=== PATIENT | female | born 1935 | race Caucasian/White ===

== ENCOUNTER → 2016-04-15 | Outpatient (CLI) | payer OTHER ==
--- NOTE | 2016-04-15 09:23 | REPMRS ---
Patient History The patient states she has not had a clinical breast exam in over a year. Patient is postmenopausal and has history of cancer at 56 in the left breast. Family history of colorectal cancer in maternal grandfather at age 50 or over and breast cancer in maternal aunt at age 50 or over. Malignant lumpectomy of the left breast. Radiation therapy of the left breast. Digital Mammo Screening Bilat: April 15, 2016 - Exam #: [id number] Bilateral CC and MLO view(s) were taken. Technologist: Cecelia Jarrell Technologist Prior study comparison: April 10, 2015, bilateral digital mammo screening bilat performed at [facility]. April 03, 2014, bilateral digital mammo screening bilat performed at [facility]. April 02, 2013, bilateral digital mammo screening bilat performed at [facility]. FINDINGS: The breast tissue is heterogeneously dense. This may lower the sensitivity of mammography. There is a moderate amount of heterogeneously dense fibroglandular tissue which is fairly symmetric. There are stable post treatment changes in the left breast. There is no interval development of dominant mass, architectural distortion, or clustered microcalcification typical of malignancy. There has been no change in the appearance of the mammogram from the prior studies. ASSESSMENT: BI-RADS/ACR category 1 mammogram. Negative. Recommendation Routine screening mammogram of both breasts in 1 year (for women over age 40). This mammogram was interpreted with the aid of an FDA-approved computer-aided dectection system. Electronically Signed By: Godwin Wright MD 04/15/16 0916
== END ==
LOC: M RAD 08:19
PROVIDERS: ATTEND Family Medicine
DX: Z12.31 Encounter for screening mammogram for malignant neoplasm of breast (principal)

== ENCOUNTER 2016-09-12 19:46 | Emergency (ER) | payer OTHER ==
[~2016-09-12] VITALS: Ht 147.3 cm; Wt 58.6 kg
[2016-09-12] MEDS ORDERED: MODU5TA PO (20:19)
[2016-09-12] MEDS ORDERED: METH2.5TA PO (20:19)
[2016-09-12] MEDS ORDERED: ATEN50TA2 PO (20:19)
[2016-09-12] MEDS ORDERED: PRAV40TA2 PO (20:19)
[2016-09-12 21:55] LABS: ALBUMIN 3.6 GM/DL (3.2-5.2); ALBUMIN/GLOBULIN RATIO 1.24 (1.00-1.93); BILIRUBIN,DIRECT 0.2 MG/DL (0.0-0.2); BILIRUBIN,TOTAL 0.5 MG/DL (0.2-1.0); CREATININE FOR GFR 1.51 MG/DL (0.55-1.02); POTASSIUM SERUM 3.7 MEQ/L (3.5-5.1); THYROXINE (T4) 16.8 UG/DL (4.5-12.0); TOTAL PROTEIN 6.5 GM/DL (6.4-8.2)
[2016-09-12 22:25] LABS: ADD MANUAL DIFFER YES; MEAN CORPUSCULAR HEMOGLOBIN 33.1 pg (27.0-33.0); MEAN CORPUSCULAR HGB CONC 34.2 g/dl (32.0-36.5); MEAN CORPUSCULAR VOLUME 96.9 fl (80.0-96.0); PLATELET COUNT, AUTOMATED 229 k/mm3 (150-450); RED CELL DISTRIBUTION WIDTH 14.5 % (11.5-14.5); WHITE BLOOD COUNT 19.4 K/mm3 (4.0-10.0)
[2016-09-12 22:50] LABS: BANDS 4 % (< 11)
[2016-09-12] MEDS ORDERED: CIPROFLOXACIN 400 MG in APPROPRIATE DILUENT 1 EA IV ONE (23:30)
[2016-09-12] MEDS ORDERED: NS 500 ML IV ONE (23:30)
[2016-09-12] MEDS ORDERED: CIPR-249 PO (23:53)
[2016-09-13 00:05] VITALS: BP 122/59
== END 2016-09-13 00:56 | disposition home or self-care (01) ==
LOC: EDBD 19:46 → M ED 19:46 → EDSEX 19:46 → M ED 09-13 00:56
DX: N39.0 Urinary tract infection, site not specified (principal); E86.0 Dehydration; E03.9 Hypothyroidism, unspecified; E11.9 Type 2 diabetes mellitus without complications; I10 Essential (primary) hypertension; E78.4 Other hyperlipidemia; Z87.891 Personal history of nicotine dependence
CPT/HCPCS: 80048; 80076; 81001; 84436; 84443; 84479; 85025; 87088; 87186; 96361; 96365; 96366; 99284; J0744

== ENCOUNTER → 2017-04-26 | Outpatient (CLI) | payer OTHER | LOC: M RAD 08:28 | DX: Z12.31 Encounter for screening mammogram for malignant neoplasm of breast (principal) | CPT/HCPCS: 77067 ==

== ENCOUNTER → 2018-04-30 | Outpatient (CLI) | payer MEDICARE ==
[~2018-04-30] MED LIST: ATEN50TA2 PO; CIPR-249 PO; METH2.5T48 PO; MODU5TA PO; PRAV40TA2 PO
--- NOTE | 2018-04-30 10:52 | REP ---
BILATERAL MAMMOGRAM WITH 3D TOMOSYNTHESIS: HISTORY: Left breast cancer with lumpectomy and radiation therapy. COMPARISON: 04/26/2017 as well as multiple other prior exams. Moderate heterogenous fibroglandular tissue is seen bilaterally. Postsurgical architectural distortion in the left breast is stable with a large amount of dystrophic calcification focally in the medial left breast. I see no new mass however there do appear to be tiny calcifications in the inferomedial right breast for which magnification views are recommended. IMPRESSION: ACR 0 incomplete. Tiny calcifications seen posteriorly in the inferomedial right breast. Recommend magnification views to further evaluate. BIRADS 0: BI-RADS/ACR category 0 mammogram, Incomplete: Need additional imaging evaluation and/or prior mammograms for comparison. This mammogram was interpreted with the aid of an FDA-approved computer-aided detection system. The patient states she has not had a clinical breast exam in over a year. The patient letter being requested is M0. Electronically Signed by Rivera Payne MD 05/02/2018 10:23 A
== END ==
LOC: M RAD 09:20
PROVIDERS: ATTEND Family Medicine
DX: Z12.31 Encounter for screening mammogram for malignant neoplasm of breast (principal); R92.1 Mammographic calcification found on diagnostic imaging of breast; Z85.3 Personal history of malignant neoplasm of breast; R92.8 Other abnormal and inconclusive findings on diagnostic imaging of breast

== ENCOUNTER → 2018-05-28 | Outpatient (CLI) | payer MEDICARE ==
--- NOTE | 2018-05-28 13:15 | REP ---
DIGITAL DIAGNOSTIC UNILATERAL RIGHT BREAST MAMMOGRAPHY WITH CAD: HISTORY: Screening mammography from April 30, 2018 was BIRADS category 0 incomplete because of some microcalcifications. Diagnostic imaging was recommended. Comparison is also made with prior mammography from April 2016. FINDINGS: Magnified focal spot compression CC, true ML, and MLO views of the right breast confirm the presence of a polymorphic tight grouping of six or seven microcalcifications in the inferomedial quadrant of the right breast in the posterior third. These must be viewed as potentially suspicious. No other mammographic finding. IMPRESSION: BIRADS 4: BI-RADS/ACR category 4 mammogram. Suspicious Abnormality - biopsy should be considered. BIRADS category four suspicious right breast imaging. Microcalcifications noted inferiorly and medially in the right breast. Stereotactic right breast needle biopsy recommended. This mammogram was interpreted with the aid of an FDA-approved computer-aided detection system. The patient states that she/he has not had a clinical breast exam in over a year. The patient letter being requested is M4 . Electronically Signed by Linus Wright MD 05/28/2018 04:44 P
== END ==
LOC: M RAD 11:32
PROVIDERS: ATTEND Family Medicine
DX: R92.8 Other abnormal and inconclusive findings on diagnostic imaging of breast (principal)

== ENCOUNTER → 2018-11-27 | Outpatient (CLI) | payer MEDICARE ==
--- NOTE | 2018-11-27 15:24 | REP ---
Digital diagnostic unilateral right breast mammography with CAD and 3-D tomography: History: Microcalcifications found on diagnostic imaging of the right breast. Personal history of malignant neoplasm of the breast. Comparison mammography is from May 28, 2018, April 30, 2018, April 26, 2017. A small microcalcific grouping was identified on the April 2018 prior study. On May 28, 2018 these were evaluated on diagnostic mammography and were considered suspicious with histologic sampling recommended. Findings: Routine views of the right breast were obtained. Magnified focal spot compression images were obtained in the CC, true ML, and MLO projection. 3-D tomography was performed. The previously identified microcalcific grouping is again seen projecting in the inferior and medial aspect of the right breast. These are unchanged in size and morphology. There are seven polymorphic microcalcifications in a tight grouping spanning approximately 3 mm. No soft tissue component is appreciated. Heterogeneously dense breast parenchyma is again seen in the subareolar and upper outer quadrant regions. There are scattered benign calcifications noted on the right as before. No neodensity or new microcalcification is observed. Impression: BIRADS 4: BI-RADS/ACR category 4 mammogram. Suspicious Abnormality - biopsy should be considered. Polymorphic microcalcific cluster inferomedial quadrant right breast meeting criteria as suspicious BIRADS category 4 mammography. Stereotactic needle biopsy recommended. There has been no change observable in the interval since the May 28, 2018 study. This mammogram was interpreted with the aid of an FDA-approved computer-aided detection system. The patient states she had a clinical breast exam in 6 months ago. The patient letter being requested is M4 dense. Electronically Signed by Linus Wright MD 11/27/2018 06:49 P
== END ==
LOC: M RAD 08:16
PROVIDERS: ATTEND Surgery
DX: R92.0 Mammographic microcalcification found on diagnostic imaging of breast (principal); Z85.3 Personal history of malignant neoplasm of breast
CPT/HCPCS: 77065; G0279

== ENCOUNTER → 2019-07-10 | Outpatient (CLI) | payer MEDICARE ==
[~2019-07-10] MED LIST changes: +CARB10TACH; +FURO40TA2; +SPIR50TA4
[2019-07-10 14:32] LABS: ALBUMIN 3.6 GM/DL (3.2-5.2); ALT/SGPT 30 U/L (12-78); BILIRUBIN,TOTAL 0.4 MG/DL (0.2-1.0); BLOOD UREA NITROGEN 22 MG/DL (7-18); C REACTIVE PROTEIN QUANTITATIV < 0.30 MG/DL (0.00-0.30); CALCIUM LEVEL 9.1 MG/DL (8.8-10.2); CARBON DIOXIDE LEVEL 29 MEQ/L (21-32); CHLORIDE LEVEL 99 MEQ/L (98-107); CK-MB VALUE MASS < 1.0 NG/ML (<3.6); CPK CREATINE PHOSPHOKINASE 56 U/L (26-192); CREATININE FOR GFR 0.99 MG/DL (0.55-1.30); GLOMERULAR FILTRATION RATE 56.6 (>32); GLUCOSE, FASTING 108 MG/DL (70-100); MB/CK RELATIVE INDEX 1.79 (< OR =4); NT-PRO BNP 1044 PG/ML (<450); POTASSIUM SERUM 4.2 MEQ/L (3.5-5.1); SODIUM LEVEL 136 MEQ/L (136-145); TOTAL PROTEIN 6.5 GM/DL (6.4-8.2); TROPONIN I 0.16 NG/ML (< 0.10)
--- NOTE | 2019-07-11 03:03 | REPPI ---
Clinical: Edema. Technique: PA and lateral. Comparison: 08/11/2006. Findings: Mediastinum and cardiac silhouette are stable with atherosclerotic changes to the thoracic aorta again noted. Lung allen demonstrate chronic-appearing interstitial changes including suspected linear scarring at the right base. No obvious focal consolidation, effusion, or pneumothorax. Skeletal structures are intact. Impression: Chronic-appearing changes. No obvious acute cardiopulmonary process appreciated. Electronically Signed by Fco Davila MD 07/11/2019 02:54 A
== END ==
LOC: M PLAIMG 11:41
PROVIDERS: ATTEND Family Medicine
DX: R60.0 Localized edema (principal); R07.89 Other chest pain

== ENCOUNTER 2019-07-11 15:09 | Emergency (ER) | payer MEDICARE ==
[~2019-07-11] VITALS: Ht 147.3 cm; Wt 61.4 kg
[~2019-07-11 15:09] MED LIST changes: -CARB10TACH; -FURO40TA2; -SPIR50TA4
[2019-07-11] MEDS ORDERED: SPIR50TA4 (15:21)
[2019-07-11] MEDS ORDERED: FURO40TA2 (15:21)
--- NOTE | 2019-07-11 17:45 | REP ---
CHEST, SINGLE VIEW: Single view of the chest is performed. There is mild elevation of the left hemidiaphragm, unchanged since prior study 07/10/2019. There is mild linear fibroatelectatic change in each lung base. There is no acute infiltrate. Heart is upper limits of normal in size. There is calcification tortuosity of the thoracic aorta. Mediastinal silhouette is unchanged. IMPRESSION: Mild chronic changes. No acute infiltrate. Electronically Signed by Rivera Payne MD 07/12/2019 10:10 A
[2019-07-11 17:47] LABS: INR 1.01
[2019-07-11 17:57] LABS: CALCIUM LEVEL 9.2 MG/DL (8.8-10.2); CREATININE FOR GFR 1.01 MG/DL (0.55-1.30); GLOMERULAR FILTRATION RATE 55.3 (>32); MB/CK RELATIVE INDEX 1.54 (< OR =4); POTASSIUM SERUM 4.3 MEQ/L (3.5-5.1); TROPONIN I 0.13 NG/ML (< 0.10)
[2019-07-11 18:08] LABS: BASO % 0.4 % (0.0-1.0); EOS # 0.2 10^3/uL (0.0-0.5); EOS % 2.6 % (0.0-3.0); HEMATOCRIT 39.9 % (36.0-47.0); HEMOGLOBIN 13.7 g/dl (12.0-15.5); LYMPH # 1.3 10^3/uL (1.5-5.0); LYMPH % 15.5 % (24.0-44.0); MEAN CORPUSCULAR HEMOGLOBIN 34.3 pg (27.0-33.0); MEAN CORPUSCULAR HGB CONC 34.3 g/dl (32.0-36.5); MONO # 0.5 10^3/uL (0.0-0.8); MONO % 5.8 % (0.0-5.0); NEUTROPHILS # 6.1 10^3/uL (1.5-8.5); NEUTROPHILS % 75.3 % (36.0-66.0); PLATELET COUNT, AUTOMATED 241 10^3/uL (150-450); RED BLOOD COUNT 3.99 10^6/uL (4.00-5.40); WHITE BLOOD COUNT 8.1 10^3/uL (4.0-10.0)
[2019-07-11] MEDS ORDERED: CARB10TACH (19:18)
[2019-07-11 19:30] VITALS: BP 189/79
[2019-07-11] MEDS: FUROSEMIDE 40MG/4ML VIAL (J1940) IV ONE ×2 (19:32→19:39)
--- NOTE | 2019-07-11 21:12 | ECGEPIP ---
[facility] - ED Test Date: 2019-07-11 Pat Name: SIENA WINSOLW Department: Room: - Gender: Female [id number] Administrator: ct : 1935 Requested By: NATANAEL Chen Order Number: [id number] Reading MD: Alexx Cavanaugh Measurements Intervals [place] Rate: 56 P: -50 [place]: 160 QRS: 1 QRSD: 84 T: 22 QT: 389 QTc: 379 Interpretive Statements SINUS BRADYCARDIA LEFT VENTRICULAR HYPERTROPHY AND ST-T CHANGE NO PRIORS FOR COMPARISON Electronically Signed on 07-11-2019 21:12:28 EDT by Alexx Cavanaugh
== END 2019-07-11 20:00 | disposition home or self-care (01) ==
LOC: M ED 15:09
DX: I11.0 Hypertensive heart disease with heart failure (principal); R79.89 Other specified abnormal findings of blood chemistry; R06.02 Shortness of breath; E11.9 Type 2 diabetes mellitus without complications; E78.5 Hyperlipidemia, unspecified; G50.0 Trigeminal neuralgia; Z79.899 Other long term (current) drug therapy; Z79.82 Long term (current) use of aspirin; Z88.0 Allergy status to penicillin; Z88.1 Allergy status to other antibiotic agents; Z88.8 Allergy status to other drugs, medicaments and biological substances
CPT/HCPCS: 36415; 71045; 80048; 82550; 82553; 83880; 84484; 85025; 85610; 93005; 93041; 94760; 96374; 99285; J1940

== ENCOUNTER → 2019-07-11 | Outpatient (CLI) | payer MEDICARE ==
[2019-07-11 18:49] LABS: CK-MB VALUE MASS < 1.0 NG/ML (<3.6); CPK CREATINE PHOSPHOKINASE 61 U/L (26-192); MB/CK RELATIVE INDEX 1.64 (< OR =4); TROPONIN I 0.13 NG/ML (< 0.10)
== END ==
LOC: M PLALAB 14:14
PROVIDERS: ATTEND Family Medicine
DX: I11.0 Hypertensive heart disease with heart failure (principal)

== ENCOUNTER 2019-07-20 12:45 | Emergency (ER) | payer MEDICARE ==
[~2019-07-20] VITALS: Ht 147.3 cm; Wt 58.3 kg
[~2019-07-20 12:45] MED LIST changes: +CARB10TACH; +FURO40TA2; +SPIR50TA4
[2019-07-20] MEDS ORDERED: LOSA25TA14 PO (13:05)
[2019-07-20] MEDS ORDERED: EQL50TAB2 PO (13:05)
[2019-07-20] MEDS ORDERED: MULTCAP PO (13:05)
[2019-07-20] MEDS ORDERED: ASPI81CH33 PO (13:05)
[2019-07-20] MEDS ORDERED: BIMA01SOL OU (13:05)
[2019-07-20] MEDS ORDERED: AMIL5TAB4 PO (13:05)
[2019-07-20] MEDS ORDERED: PRAV40TA2 PO (13:05)
[2019-07-20] MEDS ORDERED: CYAN500T3 PO (13:05)
[2019-07-20] MEDS ORDERED: COSO1SOL3 OP (13:05)
[2019-07-20] MEDS ORDERED: FOLI1TAB11 PO (13:05)
[2019-07-20 13:48] LABS: BASO % 0.4 % (0.0-1.0); EOS # 0.1 10^3/uL (0.0-0.5); EOS % 1.9 % (0.0-3.0); HEMOGLOBIN 14.1 g/dl (12.0-15.5); MEAN CORPUSCULAR HEMOGLOBIN 33.5 pg (27.0-33.0); MEAN CORPUSCULAR HGB CONC 33.6 g/dl (32.0-36.5); MEAN CORPUSCULAR VOLUME 99.8 fl (80.0-96.0); MONO # 0.6 10^3/uL (0.0-0.8); MONO % 8.8 % (0.0-5.0); NEUTROPHILS # 5.5 10^3/uL (1.5-8.5); NEUTROPHILS % 74.6 % (36.0-66.0); PLATELET COUNT, AUTOMATED 319 10^3/uL (150-450); RED BLOOD COUNT 4.21 10^6/uL (4.00-5.40); WHITE BLOOD COUNT 7.3 10^3/uL (4.0-10.0)
[2019-07-20 14:13] LABS: CALCIUM LEVEL 8.7 MG/DL (8.8-10.2); CREATININE FOR GFR 1.33 MG/DL (0.55-1.30); GLOMERULAR FILTRATION RATE 40.3 (>32); POTASSIUM SERUM 3.9 MEQ/L (3.5-5.1)
--- NOTE | 2019-07-20 15:11 | REP ---
Clinical: Arrhythmia. Comparison: 07/11/2019, 07/10/2019. Findings:Mediastinum and cardiac silhouette are stable and within normal limits. Elevation to the left hemidiaphragm with presumed large gastric bubble versus colonic gas noted overlying the left lower lung zone. Lung allen demonstrate stable chronic interstitial changes without acute consolidation, definite effusion, or pneumothorax. Skeletal structures are grossly intact. Impression:1. Chronic stable changes.2. Stable elevation to the left hemidiaphragm with presumed underlying large gastric bubble/colonic gas. Electronically Signed by Fco Davila MD 07/20/2019 03:03 P
[2019-07-20 16:08] VITALS: BP 176/78
--- NOTE | 2019-07-20 19:23 | ECGEPIP ---
[facility] - ED Test Date: 2019-07-20 Pat Name: SIENA WINSLOW Department: Room: - Gender: Female Bookmaker Map: mario : 1935 Requested By: Luz Maria Aleman Order Number: [id number] Reading MD: Luz Maria Aleman Measurements Intervals [place] Rate: 89 P: -25 [place]: 170 QRS: 7 QRSD: 80 T: 94 QT: 341 QTc: 415 Interpretive Statements SINUS RHYTHM MINIMAL VOLTAGE CRITERIA FOR LVH, AND ST-T CHANGE NONSPECIFIC T-WAVE ABNORMALITY 07/11/[address] T WAVE CHANGES Electronically Signed on 07-20-2019 19:22:51 EDT by Luz Maria Aleman
--- NOTE | 2019-07-20 19:24 | ECGEPIP ---
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
== END 2019-07-20 16:20 | disposition home or self-care (01) ==
LOC: M ED 12:45
DX: R68.84 Jaw pain (principal); R00.2 Palpitations; G50.0 Trigeminal neuralgia; E11.9 Type 2 diabetes mellitus without complications; I10 Essential (primary) hypertension; E78.5 Hyperlipidemia, unspecified; Z87.891 Personal history of nicotine dependence; Z79.82 Long term (current) use of aspirin; Z79.899 Other long term (current) drug therapy; Z88.0 Allergy status to penicillin; Z88.8 Allergy status to other drugs, medicaments and biological substances

== ENCOUNTER → 2019-09-14 | Outpatient (CLI) | payer MEDICARE ==
[~2019-09-14] MED LIST changes: +AMIL5TAB4 PO; +ASPI81CH33 PO; +BIMA01SOL OU; +COSO1SOL3 OP; +CYAN500T3 PO; +EQL50TAB2 PO; +FOLI1TAB11 PO; +LOSA25TA14 PO; +MULTCAP PO
== END ==
LOC: M LABSMTC 11:30
PROVIDERS: ATTEND Neurological Surgery
DX: Z11.59 Encounter for screening for other viral diseases (principal); Z20.828 Contact with and (suspected) exposure to other viral communicable diseases
CPT/HCPCS: C9803; U0003

== ENCOUNTER → 2019-10-04 | Outpatient (CLI) | payer MEDICARE ==
[2019-10-04 12:58] LABS: ALBUMIN 3.7 GM/DL (3.2-5.2); ALT/SGPT 14 U/L (12-78); BILIRUBIN,TOTAL 0.7 MG/DL (0.2-1.0); BLOOD UREA NITROGEN 23 MG/DL (7-18); CARBON DIOXIDE LEVEL 30 MEQ/L (21-32); CHLORIDE LEVEL 103 MEQ/L (98-107); CK-MB VALUE MASS < 1.0 NG/ML (<3.6); CPK CREATINE PHOSPHOKINASE 40 U/L (26-192); FREE T4 0.97 NG/DL (0.76-1.46); GLUCOSE, FASTING 112 MG/DL (70-100); POTASSIUM SERUM 3.7 MEQ/L (3.5-5.1); SODIUM LEVEL 138 MEQ/L (136-145); TROPONIN I 0.13 NG/ML (< 0.10)
--- NOTE | 2019-11-06 11:16 | REPPI ---
CHEST X-RAY: PA AND LATERAL VIEWS Delay in reporting results from hospital computer malfunction from malware / ransomware. COMPARISON: 07/10/19 FINDINGS: There is a horizontal linear density above the right hemidiaphragm compatible with discoid atelectasis. The lung allen are otherwise clear. Cardiac size is normal. The perla and mediastinum are unremarkable. There is demineralization. There is thoracic scoliosis convex right in the mid-thoracic spine and left in the lower thoracic spine. This is unchanged. IMPRESSION: Discoid atelectasis inferiorly in the right lung. Thoracic scoliosis. MTDD
== END ==
LOC: M PLAIMG 09:31
PROVIDERS: ATTEND Family Medicine
DX: R07.89 Other chest pain (principal); R53.83 Other fatigue; N18.3 Chronic kidney disease, stage 3 (moderate)

== ENCOUNTER → 2019-10-07 | Outpatient (CLI) | payer MEDICARE ==
--- NOTE | 2019-11-06 11:18 | REP ---
DIGITAL DIAGNOSTIC BILATERAL MAMMOGRAPHY WITH CAD AND 3D TOMOGRAPHY HISTORY: Screening mammography. Patient is status post treatment for a personal history of left breast cancer. Status post lumpectomy and radiation therapy. She reports a bruise in the upper outer quadrant in the left breast from a recent fall. COMPARISON: Made with multiple prior mammography from 11/27/2018, 05/28/2018, and 04/30/2018. The 04/30/2018 study identified a small grouping of microcalcifications, which was considered suspicious. Biopsy has not been performed to date. MAMMOGRAPHIC FINDINGS: The previously identified grouping of microcalcifications in the inferior medial aspect of the right breast is again seen, unchanged in number or extent from the 05/28/2018 diagnostic study. This 1.5 year range of stability does not discount the possibility of ductal carcinoma in situ associated with this finding. Breast parenchymal density pattern is C on Volpara volumetric breast parenchymal density, heterogeneously dense. This may inhibit the sensitivity of mammography. Posttreatment changes are noted in the left breast as before, unchanged. No neodensity, new calcification pattern, or mass lesion is seen. IMPRESSION: Mammographically stable findings including a suspicious microcalcific grouping in the inferomedial aspect of the right breast. BI-RADS Category remains 4 suspicious right breast mammography. Histologic sampling is still suggested. There is stability observed for 1.5 years. No other suspicious abnormality. This mammogram is interpreted with the aid of an FDA approved computer assisted detection system. Patient letter M4 dense. The patient reports her last clinical breast exam six months prior. [facility]
== END ==
LOC: M WHC 13:45
PROVIDERS: ATTEND Surgery
DX: Z12.31 Encounter for screening mammogram for malignant neoplasm of breast (principal); R92.0 Mammographic microcalcification found on diagnostic imaging of breast
CPT/HCPCS: 77066; G0279

== ENCOUNTER 2019-11-07 15:57 | Emergency (ER) | payer MEDICARE ==
[~2019-11-07] VITALS: Ht 147.3 cm; Wt 58.2 kg
[2019-11-07 16:37] LABS: BASO % 0.4 % (0.0-1.0); EOS # 0.2 10^3/uL (0.0-0.5); EOS % 2.7 % (0.0-3.0); HEMATOCRIT 36.5 % (36.0-47.0); HEMOGLOBIN 11.7 g/dl (12.0-15.5); LYMPH # 1.5 10^3/uL (1.5-5.0); LYMPH % 18.4 % (24.0-44.0); MEAN CORPUSCULAR HEMOGLOBIN 33.4 pg (27.0-33.0); MEAN CORPUSCULAR HGB CONC 32.1 g/dl (32.0-36.5); MEAN CORPUSCULAR VOLUME 104.3 fl (80.0-96.0); MONO # 0.6 10^3/uL (0.0-0.8); NEUTROPHILS # 5.8 10^3/uL (1.5-8.5); NEUTROPHILS % 71.3 % (36.0-66.0); PLATELET COUNT, AUTOMATED 249 10^3/uL (150-450); WHITE BLOOD COUNT 8.2 10^3/uL (4.0-10.0)
[2019-11-07 16:49] LABS: INR 1.03; PROTHROMBIN TIME 13.7 SECONDS (12.5-14.3)
[2019-11-07 16:50] LABS: PARTIAL THROMBOPLASTIN TIME 28.1 SECONDS (24.2-38.5)
[2019-11-07] MEDS ORDERED: HEPARIN DRIP 25,000 UNITS in IV 1 EA IV SCH (17:10)
[2019-11-07 17:13] LABS: ALBUMIN 3.3 GM/DL (3.2-5.2); ALT/SGPT 18 U/L (12-78); BILIRUBIN,DIRECT < 0.1 MG/DL (0.0-0.2); BILIRUBIN,TOTAL 0.3 MG/DL (0.2-1.0); NT-PRO BNP 1855 PG/ML (<450); TOTAL PROTEIN 6.1 GM/DL (6.4-8.2)
[2019-11-07] MEDS ORDERED: HEPARIN SOD (PORCINE) 5000UNITS/ML 1ML VIAL/SYRINGE IV ONE (17:15)
--- NOTE | 2019-11-07 17:17 | REPVR ---
PROCEDURE INFORMATION: Exam: XR Chest, 1 View Exam date and time: 11/07/2019 4:20 PM Age: 84 years old Clinical indication: Chest pain TECHNIQUE: Imaging protocol: XR of the chest Views: Frontal portable upright view of the chest. COMPARISON: CR Chest, 1 view 07/20/2019 2:31 PM FINDINGS: Tubes, catheters and devices: EKG leads are present overlying the chest. Lungs: The lungs are clear bilaterally. The pulmonary vasculature is normal. Pleural space: No pleural effusion. No pneumothorax. Heart/Mediastinum: The heart is normal in size and contour. Mediastinum: Stable. Vasculature: Mild aortic arch atherosclerotic calcification without ectasia. Diaphragm: The left hemidiaphragm remains moderately elevated. Bones/joints: Stable. IMPRESSION: No acute cardiopulmonary abnormality identified. Electronically signed by: Kee Pereyra On 11/07/2019 17:16:48 PM
[2019-11-07 19:59] VITALS: BP 199/71
[2019-11-07 20:14] VITALS: BP 199/71
[2019-11-07] MEDS ORDERED: NITROGLYCERIN 2% OINT 1 GM *U/D* PKT TOP ONE (20:15)
--- NOTE | 2019-11-16 00:01 | ECGEPIP ---
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
== END 2019-11-07 20:01 | disposition short-term general hospital (02) ==
LOC: M ED 15:57
DX: I21.4 Non-ST elevation (NSTEMI) myocardial infarction (principal); R79.89 Other specified abnormal findings of blood chemistry; I25.10 Atherosclerotic heart disease of native coronary artery without angina pectoris; E11.9 Type 2 diabetes mellitus without complications; I10 Essential (primary) hypertension; E78.5 Hyperlipidemia, unspecified; Z95.5 Presence of coronary angioplasty implant and graft; Z87.891 Personal history of nicotine dependence; Z79.82 Long term (current) use of aspirin; Z79.899 Other long term (current) drug therapy; Z88.0 Allergy status to penicillin; Z88.8 Allergy status to other drugs, medicaments and biological substances
CPT/HCPCS: 71045; 80047; 80076; 83880; 84443; 84484; 85025; 85610; 85730; 93005; 93041; 94760; 99285; J1644; U0002

== ENCOUNTER → 2019-11-07 | Outpatient (CLI) | payer MEDICARE | LOC: M LAB 13:31 | PROVIDERS: ATTEND Internal Medicine Cardiovascular Disease | DX: R34 Anuria and oliguria (principal) ==

== ENCOUNTER → 2019-11-13 | Outpatient (CLI) | payer MEDICARE ==
[2019-11-13 15:48] LABS: CALCIUM LEVEL 9.3 MG/DL (8.8-10.2); CREATININE FOR GFR 0.96 MG/DL (0.55-1.30); GLOMERULAR FILTRATION RATE 58.7 (>32); POTASSIUM SERUM 3.8 MEQ/L (3.5-5.1)
== END ==
LOC: M PLALAB 12:21
PROVIDERS: ATTEND Family Medicine
DX: N18.3 Chronic kidney disease, stage 3 (moderate) (principal)

== ENCOUNTER → 2020-01-14 | Outpatient (CLI) | payer MEDICARE ==
[2020-01-14 14:02] LABS: BASO % 0.7 % (0.0-1.0); EOS # 0.2 10^3/uL (0.0-0.5); EOS % 3.8 % (0.0-3.0); HEMOGLOBIN 13.5 g/dl (12.0-15.5); LYMPH # 1.1 10^3/uL (1.5-5.0); LYMPH % 18.5 % (24.0-44.0); MEAN CORPUSCULAR HEMOGLOBIN 31.5 pg (27.0-33.0); MEAN CORPUSCULAR HGB CONC 31.4 g/dl (32.0-36.5); MEAN CORPUSCULAR VOLUME 100.5 fl (80.0-96.0); MONO # 0.5 10^3/uL (0.0-0.8); MONO % 8.3 % (0.0-5.0); NEUTROPHILS % 68.4 % (36.0-66.0); PLATELET COUNT, AUTOMATED 258 10^3/uL (150-450); RED BLOOD COUNT 4.28 10^6/uL (4.00-5.40); WHITE BLOOD COUNT 5.8 10^3/uL (4.0-10.0)
[2020-01-14 14:18] LABS: HEMOGLOBIN A1c 5.9 %
[2020-01-14 14:32] LABS: ERYTHROCYTE SEDIMENTATION RATE 10 mm/hr (0-30)
[2020-01-14 14:42] LABS: ALBUMIN 3.6 GM/DL (3.2-5.2); BILIRUBIN,TOTAL 0.2 MG/DL (0.2-1.0); CALCIUM LEVEL 8.8 MG/DL (8.8-10.2); CHOLESTEROL RISK RATIO 2.293 (<5); CREATININE FOR GFR 1.14 MG/DL (0.55-1.30); FREE T4 0.9 NG/DL (0.76-1.46); GLOMERULAR FILTRATION RATE 48.1 (>32); POTASSIUM SERUM 4.4 MEQ/L (3.5-5.1); THYROID STIMULATING HORMONE 3.39 uIU/ML (0.358-3.740); TOTAL PROTEIN 6.4 GM/DL (6.4-8.2)
== END ==
LOC: M PLALAB 08:39
PROVIDERS: ATTEND Family Medicine
DX: E11.22 Type 2 diabetes mellitus with diabetic chronic kidney disease (principal); I12.9 Hypertensive chronic kidney disease with stage 1 through stage 4 chronic kidney disease, or unspecified chronic kidney disease; E78.2 Mixed hyperlipidemia; R70.0 Elevated erythrocyte sedimentation rate; N18.30 Chronic kidney disease, stage 3 unspecified

== ENCOUNTER → 2020-02-20 | Outpatient (CLI) | payer MEDICARE ==
[2020-02-20 11:36] LABS: ALBUMIN 3.6 GM/DL (3.2-5.2); ALT/SGPT 17 U/L (12-78); BILIRUBIN,DIRECT < 0.1 MG/DL (0.0-0.2); BILIRUBIN,TOTAL 0.3 MG/DL (0.2-1.0); TOTAL PROTEIN 6.3 GM/DL (6.4-8.2)
== END ==
LOC: M PLALAB 08:03
PROVIDERS: ATTEND Family Medicine
DX: R74.8 Abnormal levels of other serum enzymes (principal)

== ENCOUNTER → 2020-03-20 | Outpatient (CLI) | payer MEDICARE | LOC: M LABSMTC 11:25 | PROVIDERS: ATTEND Internal Medicine Cardiovascular Disease | DX: Z01.812 Encounter for preprocedural laboratory examination (principal); Z20.822 Contact with and (suspected) exposure to COVID-19; I20.9 Angina pectoris, unspecified ==

== ENCOUNTER → 2020-03-30 | Outpatient (CLI) | payer MEDICARE ==
[2020-03-30 10:45] LABS: BASO # 0.1 10^3/uL (0.0-0.2); BASO % 0.5 % (0.0-1.0); EOS # 0.3 10^3/uL (0.0-0.5); EOS % 2.7 % (0.0-3.0); HEMATOCRIT 34.7 % (36.0-47.0); HEMOGLOBIN 11.1 g/dl (12.0-15.5); LYMPH # 1.3 10^3/uL (1.5-5.0); LYMPH % 12.9 % (24.0-44.0); MEAN CORPUSCULAR HEMOGLOBIN 31.6 pg (27.0-33.0); MEAN CORPUSCULAR VOLUME 98.9 fl (80.0-96.0); MONO # 0.6 10^3/uL (0.0-0.8); MONO % 6.1 % (2.0-8.0); NEUTROPHILS # 7.6 10^3/uL (1.5-8.5); NEUTROPHILS % 77.4 % (36.0-66.0); PLATELET COUNT, AUTOMATED 275 10^3/uL (150-450); RED BLOOD COUNT 3.51 10^6/uL (4.00-5.40); WHITE BLOOD COUNT 9.9 10^3/uL (4.0-10.0)
[2020-03-30 11:13] LABS: HEMOGLOBIN A1c 6.1 %
[2020-03-30 11:18] LABS: CREATININE FOR GFR 1.05 MG/DL (0.55-1.30); GLOMERULAR FILTRATION RATE 52.9 (>32)
[2020-03-30 11:33] LABS: ALBUMIN 3.3 GM/DL (3.2-5.2); BILIRUBIN,TOTAL 0.3 MG/DL (0.2-1.0); CALCIUM LEVEL 8.8 MG/DL (8.8-10.2); CHOLESTEROL RISK RATIO 1.926 (<5); CREATININE FOR GFR 1.02 MG/DL (0.55-1.30); FREE T4 0.84 NG/DL (0.76-1.46); GLOMERULAR FILTRATION RATE 54.7 (>32); POTASSIUM SERUM 4.1 MEQ/L (3.5-5.1); THYROID STIMULATING HORMONE 4.26 uIU/ML (0.358-3.740); TOTAL PROTEIN 6.1 GM/DL (6.4-8.2)
== END ==
LOC: M PLALAB 08:09
PROVIDERS: ATTEND Family Medicine
DX: E11.22 Type 2 diabetes mellitus with diabetic chronic kidney disease (principal); I12.9 Hypertensive chronic kidney disease with stage 1 through stage 4 chronic kidney disease, or unspecified chronic kidney disease; I25.10 Atherosclerotic heart disease of native coronary artery without angina pectoris

== ENCOUNTER → 2020-07-06 | Outpatient (REF) | payer MEDICARE | LOC: M LAB REF 16:49 | PROVIDERS: ATTEND Family Medicine | DX: S91.104A Unspecified open wound of right lesser toe(s) without damage to nail, initial encounter (principal); X58.XXXA Exposure to other specified factors, initial encounter; Y92.9 Unspecified place or not applicable ==

== ENCOUNTER 2020-09-09 10:35 | Inpatient (IN) | payer MEDICARE ==
[~2020-09-09] VITALS: Ht 147.3 cm; Wt 58.3 kg
[2020-09-09] VITALS (7 sets, daily range): BP systolic 160–197; BP diastolic 68–100
[~2020-09-09 10:35] MED LIST changes: -CARB10TACH; +CARB10TACH PO; -COSO1SOL3 OP; +COSO1SOL3 OU; -FURO40TA2; +FURO40TA2 PO
[2020-09-09] MEDS ORDERED: EZET10TA21 PO (11:32)
[2020-09-09] MEDS ORDERED: ROSU20TA5 PO (11:32)
--- NOTE | 2020-09-09 12:51 | REP ---
INDICATION: ams, assess for pneumonia. COMPARISON: Comparison chest x-ray November 06, 2020.. TECHNIQUE: Sitting AP portable chest x-ray. FINDINGS: EKG electrodes are seen. Left hemidiaphragm is elevated as before. There is no evidence of infiltrate or pleural effusion. Heart size is borderline unchanged. The thoracic aorta is tortuous. No acute bony abnormality. IMPRESSION: Elevated left hemidiaphragm and mildly enlarged heart. Coronary artery stent material is visible over the right heart. No infiltrate or effusion seen. <Electronically signed by Godwin Wright > 09/09/20 [id number]
[2020-09-09 13:09] LABS: BASO % 0.4 % (0.0-1.0); EOS # 0.2 10^3/uL (0.0-0.5); EOS % 2.6 % (0.0-3.0); HEMATOCRIT 26.3 % (36.0-47.0); HEMOGLOBIN 8.3 g/dl (12.0-15.5); LYMPH # 1.3 10^3/uL (1.5-5.0); LYMPH % 17.5 % (24.0-44.0); MEAN CORPUSCULAR HGB CONC 31.6 g/dl (32.0-36.5); MEAN CORPUSCULAR VOLUME 94.9 fl (80.0-96.0); MONO # 0.5 10^3/uL (0.0-0.8); MONO % 6.8 % (2.0-8.0); NEUTROPHILS # 5.3 10^3/uL (1.5-8.5); NEUTROPHILS % 72.2 % (36.0-66.0); PLATELET COUNT, AUTOMATED 257 10^3/uL (150-450); RED BLOOD COUNT 2.77 10^6/uL (4.00-5.40); WHITE BLOOD COUNT 7.4 10^3/uL (4.0-10.0)
[2020-09-09 13:34] LABS: ALBUMIN 3.3 GM/DL (3.2-5.2); ALT/SGPT 28 U/L (12-78); BILIRUBIN,TOTAL 0.1 MG/DL (0.2-1.0); BLOOD UREA NITROGEN 18 MG/DL (7-18); CALCIUM LEVEL 8.2 MG/DL (8.8-10.2); CARBON DIOXIDE LEVEL 23 MEQ/L (21-32); CHLORIDE LEVEL 112 MEQ/L (98-107); CK-MB VALUE MASS < 1.0 NG/ML (<3.6); CPK CREATINE PHOSPHOKINASE 155 U/L (26-192); CREATININE FOR GFR 0.92 MG/DL (0.55-1.30); GLOMERULAR FILTRATION RATE > 60.0 (>32); GLUCOSE, FASTING 114 MG/DL (70-100); MAGNESIUM LEVEL 2.6 MG/DL (1.8-2.4); MB/CK RELATIVE INDEX 0.65 (< OR =4); NT-PRO BNP 227 PG/ML (<450); POTASSIUM SERUM 4.5 MEQ/L (3.5-5.1); SODIUM LEVEL 142 MEQ/L (136-145); TOTAL PROTEIN 6.1 GM/DL (6.4-8.2); TROPONIN I 0.13 NG/ML (< 0.10)
[2020-09-09] MEDS ORDERED: COLA100C5 PO (15:09)
[2020-09-09] MEDS ORDERED: OYST1TAB PO (15:09)
[2020-09-09] MEDS ORDERED: LOSA100T50 PO (15:09)
[2020-09-09] MEDS ORDERED: NITR0.4S14 SL (15:09)
[2020-09-09] MEDS ORDERED: AMLO2.5T3 PO (15:09)
[2020-09-09] MEDS ORDERED: D31000TA2 PO (15:09)
[2020-09-09] MEDS ORDERED: ASPI-161 PO (15:09)
[2020-09-09] MEDS ORDERED: CLOP75TA2 PO (15:09)
[2020-09-09] MEDS ORDERED: ZINC1TAB2 PO (15:09)
[2020-09-09] MEDS ORDERED: OCUVTAB4 PO (15:09)
[2020-09-09] MEDS ORDERED: VITMTA PO (15:09)
[2020-09-09] MEDS ORDERED: METOPROLOL TART 25 MG TABLET PO ONE (15:10)
[2020-09-09] MEDS ORDERED: AMIODARONE HCL 150 MG in IV 1 EA IV STA (15:46)
[2020-09-09] MEDS ORDERED: PILL CUTTER 1 EACH XX ONE (15:47)
[2020-09-09 16:12] LABS: CK-MB VALUE MASS < 1.0 NG/ML (<3.6); CPK CREATINE PHOSPHOKINASE 163 U/L (26-192); MB/CK RELATIVE INDEX 0.61 (< OR =4); TROPONIN I 0.12 NG/ML (< 0.10)
[2020-09-09] MEDS ORDERED: ACETAMINOPHEN TAB 650MG DOSE (2X325MG) PO PRN (17:05)
[2020-09-09] MEDS ORDERED: NITROGLYCERIN 0.4 MG SUBL TABLET SL PRN (17:05)
[2020-09-09] MEDS ORDERED: FUROSEMIDE 40 MG TAB PO PRN (17:05)
--- NOTE | 2020-09-09 17:39 | HPEPDOC ---
General Date of Admission 09/09/20 Date of Service: Sep 09, 2020 Primary Care Physician: SOILA STEELE DO Attending Physician: Jair Perez MD Chief Complaint The patient is a 85-year-old female admitted with a reason for visit of GI blood loss anemia. Source: Patient, Family, RN/MD, Old records Exam Limitations: No limitations History of Present Illness Ms. Vergara was feeling well until about 5 days ago when she got a "stomach bug". This was associated with significant nausea and vomiting, which is unusual for her. Her daughter, who helped to clean up the emesis, reports that a was a darker looking (and when directly questioned as to if it look like coffee grounds stated possibly). Since then she has had a poor appetite. Over the last day or so she started feeling wobbly and unsteady on her feet. She denies federica vertigo but describes something more like an orthostasis or disequi librium. Because of this progressive symptom they sought care in the emergency department. While in the emergency department she was found to be significantly anemic and had guaiac positive stools. Relevantly, she has had 3 episodes of coronary stenting within the last 12 months. She did have restenosis of one stent after her Plavix was held for 5 days around a gamma knife procedure for her trigeminal neuralgia. Her last coronary stenting was done on 03/25/2020, and she reports that she was strictly told by her human resources benefits assistant that she must remain on Plavix for a full year. Home Medications Scheduled Amiloride HCl (Amiloride HCl) 5 Mg Tablet, 5 MG PO BID, (Reported) Amlodipine Besylate (Amlodipine Besylate) 2.5 Mg Tablet, 2.5 MG PO DAILY, (Reported) Aspirin (Aspirin EC) 81 Mg Tablet.dr, 81 MG PO DAILY, (Reported) Bimatoprost (Lumigan) 0.01% 2.5ML Drops, 1 DROP OU QHS, (Reported) Calcium Carbonate (Calcium) 500 Mg Tablet, 500 MG PO DAILY, (Reported) Carbamazepine (Carbamazepine) 100 Mg Tab.chew, 100 MG PO QHS, (Reported) Cholecalciferol (Vitamin D3) (Vitamin D3) 1,000 Unit Tablet, 1,000 UNITS PO DAILY, (Reported) Clopidogrel Bisulfate (Clopidogrel) 75 Mg Tablet, 75 MG PO DAILY, (Reported) Dorzolamide HCl/Timolol Maleat (Cosopt Eye Drops) 10 Ml Drops, 1 DROP OU BID, (Reported) Ezetimibe (Ezetimibe) 10 Mg Tablet, 10 MG PO DAILY, (Reported) Losartan Potassium (Losartan Potassium) 100 Mg Tablet, 100 MG PO DAILY, (Reported) Multivitamins (Thera M Plus Tablet) 1 Each Tablet, 1 TAB PO DAILY, (Reported) Rosuvastatin Calcium (Rosuvastatin Calcium) 20 Mg Tablet, 20 MG PO QHS, (Reported) Vit A/Vit C/Vit E/Zinc/Copper (Preservision Areds Tablet) 1 Each Tablet, 1 TAB PO DAILY, (Reported) Zinc (Zinc) 50 Mg Tablet, 50 MG PO DAILY, (Reported) Scheduled PRN Docusate Sodium (Colace) 100 Mg Capsule, 100 MG PO DAILY PRN for CONSTIPATION, (Reported) Furosemide (Furosemide) 40 Mg Tablet, 40 MG PO DAILY PRN for EDEMA, (Reported) Nitroglycerin (Nitroglycerin) 0.4 Mg Tab.subl, 0.4 MG SL NITRO PRN for CHEST PAIN, (Reported) Allergies Coded Allergies: Cephalosporins (Verified Allergy, Unknown, 07/11/19) Penicillins (Verified Allergy, Unknown, 07/11/19) hydrochlorothiazide (Verified Allergy, Unknown, 07/11/19) niacin (Verified Allergy, Unknown, 07/11/19) cyclopentolate (Verified Adverse Reaction, Unknown, unknown, 07/20/19) Past Medical History Medical History Coronary artery disease status post stenting, hypertension, diet-controlled diabetes, hypercholesterolemia, glaucoma, trigeminal neuralgia, insomnia, history of breast cancer in 1992 Surgical History Bilateral cataract replacement, coronary stenting x3 with the most recent one being on 03/25/2020 Family History Significant Family History: No pertinent family hx Her father at 65 of emphysema, her mother at 77 of "heart problems" Social History * Smoker: non-smoker Alcohol: Denies She has everything she needs on one floor in her home. The exception is the laundry which is in the basement. A-FIB/CHADSVASC A-FIB History Current/History of A-Fib/PAF?: No Review of Systems Constitutional: Reports: Weakness, Fatigue; Denies: Chills, Fever Eyes: Denies: Vision change ENT: Denies: Head Aches, Sore Throat Skin: Denies: Rash, Lesions, Jaundice, Bruising Pulmonary: Denies: Dyspnea, Cough Cardiovascular: Reports: Lt Headedness; Denies: Chest Pain, Palpitations, Edema Gastrointestinal: Reports: Nausea, Vomiting, Other Symptoms (Probable hematemesis) Genitourinary: Denies: Dysuria, Hematuria Hematologic: Denies: Bruising, Bleeding Excessively Endocrine: Denies: Polydipsia, Polyphagia, Polyuria Neurological: Denies: Change in speech, Confusion Psych: Reports: Mood Normal; Denies: Memory Issues Physical Examination General Exam: Positive: Alert, Cooperative (Laying in the ER stretcher talking to her daughter when I entered the room), No Acute Distress Eye Exam: Positive: PERRLA; Negative: Conjunctiva & lids normal (Conjunctiva are pale), Sclera icteric ENT Exam: Positive: Atraumatic, Mucous membr. moist/pink, Pharynx Normal, Tongue Midline Neck Exam: Positive: Supple; Negative: JVD, Lymphadenopathy Chest Exam: Positive: Clear to auscultation, Normal air movement Heart Exam: Positive: Rate Normal, Regular Rhythm, Normal S1, Normal S2, Murmurs (There is a 23/6 systolic ejection murmur noted at the right upper sternal border) Telemetry: Positive: No significant arrhythmia Abdomen Exam: Positive: Normal bowel sounds, Soft; Negative: Tenderness (Including moderate to deep palpation of the epigastrium), Hepatospenomegaly Extremity Exam: Negative: Cyanosis, Edema Skin Exam: Positive: Nl turgor and temperature Neuro Exam: Positive: Normal Speech, Normal Tone Psych Exam: Positive: Mental status NL, Mood NL, Memory Intact Vital Signs Vital Signs Date Time Temp Pulse Resp B/P (MAP) Pulse Ox O2 Delivery O2 Flow Rate FiO2 09/09/20 17:34 97.9 66 20 182/77 99 Room Air Laboratory Data Labs 24H Laboratory Tests 2 09/09/20 12:46: Immature Granulocyte % (Auto) 0.5, Neutrophils (%) (Auto) 72.2H, Lymphocytes (%) (Auto) 17.5L, Monocytes (%) (Auto) 6.8, Eosinophils (%) (Auto) 2.6, Basophils (%) (Auto) 0.4, Neutrophils # (Auto) 5.3, Lymphocytes # (Auto) 1.3L, Monocytes # (Auto) 0.5, Eosinophils # (Auto) 0.2, Basophils # (Auto) 0.0, Nucleated Red Blood Cells % (auto) 0.0, Anion Gap 7L, Glomerular Filtration Rate > 60.0, Calcium Level 8.2L, Magnesium Level 2.6H, Total Bilirubin 0.1L, Aspartate Amino Transf (AST/SGOT) 22, Alanine Aminotransferase (ALT/SGPT) 28, Alkaline Phosphatase 87, Total Creatine Kinase 155, Creatine Kinase MB < 1.0, Creatine Kinase MB Relative Index 0.65, Troponin I 0.13H, OI-Xux-A-Type Natriuretic Peptide 227, Total Protein 6.1L, Albumin 3.3, Albumin/Globulin Ratio 1.2, Thyroid Stimulating Hormone (TSH) 1.710 09/09/20 15:19: Total Creatine Kinase 163, Creatine Kinase MB < 1.0, Creatine Kinase MB Relative Index 0.61, Troponin I 0.12H CBC/BMP Laboratory Tests 09/09/20 12:46 RAD Interpretation STUDY: CXR (Elevated left hemidiaphragm and mildly enlarged heart. Coronary artery stent material visible over the right heart. No infiltrate or effusion seen.) Problems (1) Anemia due to gastrointestinal blood loss Status: Acute Problem Specific Plan: Repeat Labs Problem Text: She has 2 units of blood already ordered to anticipate these will be transfused soon. After that we will monitor her H/H to see if she is still bleeding. This situation is complicated because she must remain on Plavix. I have consulted a automobile brakes bonder for further advice. We may have to transfer her to a center where coronary angioplasty is immediately available, but it is not clear that we must do that at this time. Will monitor carefully. (2) CAD S/P percutaneous coronary angioplasty Status: Chronic Problem Text: She has a known history of coronary artery disease and has had coronary angioplasty and stenting as recently as 5 months ago. Both the patient and her daughter report that they were strictly told by the human resources benefits assistant they may not come off Plavix until March 2021. Based on this I will continue her Plavix even in the setting of a GI bleed. She does have mild elevations of her troponin I today (0.13, 0.12) but I believe this relates to demand ischemia from her anemia. Additionally the ER physician reports that she had some sort of tachyarrhythmia while with him and he ended up giving her IV metoprolol and some amiodarone. This seems to have resolved at this time, but given all these open questions regarding her cardiac care I have consulted a human resources benefits assistant for further evaluation and treatment along with us. (3) Diabetes mellitus Status: Chronic Problem Text: She states she has diet-controlled diabetes. I will check a hemoglobin A1c in the morning. At this point I will not do regular fingersticks, but we will monitor her glucose on her labs. (4) Hypertension Status: Chronic Problem Specific Plan: Monitor Clinically Problem Text: Her blood pressure seems reasonably controlled under the circumstances. Continue current regimen, monitor. (5) Hyperlipidemia Status: Chronic Problem Text: Continue current regimen, monitor. (6) Glaucoma Status: Chronic Problem Text: The hospital does not stock her particular eyedrop but I did give orders that she may use hers from home if it is brought in. Continue current regimen, monitor (7) Trigeminal neuralgia Status: Chronic Problem Text: Continue current regimen, monitor. Plan / VTE VTE Prophylaxis Ordered?: Yes (Mechanical) VTE Exclusion Mechanical Proph: N/A:VTE Prophy Ordered VTE Exclusion Pharmacological: Bleeding Risk Plan Diagnostics: Check Labs, Repeat Labs in AM Advanced Directives: MOLST Form is available (But is at home with her daughter. Neither of them were able to tell me what it says. They are going to bring it in tomorrow and we can adjust her advanced directives based on that information.) Jair Perez MD Sep 09, 2020 17:39
[2020-09-09] MEDS ORDERED: amLODIPine 5 MG TAB PO ONE (20:00)
[2020-09-09 20:06] LABS: RSV AMPLIFICATION NEGATIVE (NEGATIVE)
[2020-09-09] MEDS ORDERED: ENTER DRUG NAME HERE (PATIENT'S OWN MED) OU SCH (21:00)
[2020-09-09 21:16] LABS: IRON (FE) 36 UG/DL (50-170); TOTAL IRON BINDING CAPACITY 301 UG/DL (250-450)
[2020-09-09] MEDS: ROSUVASTATIN 10 MG TAB (CRESTOR) PO SCH (21:40)
[2020-09-09] MEDS: METOPROLOL TART 25 MG TABLET PO SCH (21:40)
[2020-09-09] MEDS: PANTOPRAZOLE 40MG VIAL (C9113 PER 1) IV SCH (21:40)
[2020-09-09] MEDS: DOCUSATE SODIUM 100MG CAPSULE PO SCH (21:40)
[2020-09-09 21:43] LABS: FOLATE > 24.0 NG/ML (>5.4); VITAMIN B12 LEVEL 1070 PG/ML (247-911)
[2020-09-09 22:05] LABS: INR 1.02; PROTHROMBIN TIME 13.6 SECONDS (12.5-14.3)
[2020-09-09 22:06] LABS: PARTIAL THROMBOPLASTIN TIME 30.3 SECONDS (24.2-38.5)
[2020-09-09] MEDS ORDERED: FUROSEMIDE 20MG/2ML VIAL (J1940) IV SCH (23:35)
[2020-09-09] MEDS: COSOPT OCUMETER PLUS 10ML (DORZOLAMIDE/TIMOLOL) OU SCH (23:41)
[2020-09-09] MEDS: aMILoride 5 MG TAB PO SCH (23:42)
[2020-09-09] MEDS: carBAMazepine 100MG *1/2* TABLET PO SCH (23:42)
[2020-09-10] VITALS (8 sets, daily range): BP systolic 115–144; BP diastolic 57–69
[2020-09-10 01:43] LABS: MEAN CORPUSCULAR HEMOGLOBIN 29.3 pg (27.0-33.0); MEAN CORPUSCULAR HGB CONC 32.4 g/dl (32.0-36.5); MEAN CORPUSCULAR VOLUME 90.2 fl (80.0-96.0); PLATELET COUNT, AUTOMATED 237 10^3/uL (150-450); WHITE BLOOD COUNT 10.1 10^3/uL (4.0-10.0)
[2020-09-10 04:54] LABS: HEMATOCRIT 33.9 % (36.0-47.0); HEMOGLOBIN 11.1 g/dl (12.0-15.5); MEAN CORPUSCULAR HEMOGLOBIN 29.1 pg (27.0-33.0); MEAN CORPUSCULAR HGB CONC 32.7 g/dl (32.0-36.5); MEAN CORPUSCULAR VOLUME 88.7 fl (80.0-96.0); PLATELET COUNT, AUTOMATED 203 10^3/uL (150-450); RED BLOOD COUNT 3.82 10^6/uL (4.00-5.40); WHITE BLOOD COUNT 7.6 10^3/uL (4.0-10.0)
[2020-09-10 05:16] LABS: ALT/SGPT 25 U/L (12-78); BILIRUBIN,TOTAL 0.3 MG/DL (0.2-1.0); BLOOD UREA NITROGEN 13 MG/DL (7-18); CALCIUM LEVEL 8.3 MG/DL (8.8-10.2); CARBON DIOXIDE LEVEL 26 MEQ/L (21-32); CHLORIDE LEVEL 111 MEQ/L (98-107); CREATININE FOR GFR 0.87 MG/DL (0.55-1.30); GLOMERULAR FILTRATION RATE > 60.0 (>32); GLUCOSE, FASTING 99 MG/DL (70-100); POTASSIUM SERUM 3.8 MEQ/L (3.5-5.1); SODIUM LEVEL 143 MEQ/L (136-145); TOTAL PROTEIN 5.5 GM/DL (6.4-8.2)
--- NOTE | 2020-09-10 07:38 | ECGEPIP ---
[facility] - ED Test Date: 2020-09-09 Pat Name: SIENA WINSLOW Department: Room: - Gender: Female [employer] Straightener: LR : 1935 Requested By: MINNIE Gilbert Order Number: [id number] Reading MD: Alexx Cavanaugh Measurements Intervals [place] Rate: 74 P: 29 MS: 166 QRS: 6 QRSD: 74 T: 38 QT: 366 QTc: 406 Interpretive Statements Normal sinus rhythm Minimal voltage criteria for LVH, may be normal variant ( R in aVL ) POOR R WAVE PROGRESSION BASELINE ARTIFACT AFFECTS INTERPRETATION SIMILAR TO 11/07/19 Electronically Signed on 09-10-2020 7:38:29 EDT by Alexx Cavanaugh
[2020-09-10] MEDS: PANTOPRAZOLE 40MG VIAL (C9113 PER 1) IV SCH ×2 (08:42→20:24)
[2020-09-10] MEDS: VITAMIN D 1,000 INTERNATIONAL UNITS TABLET PO SCH (08:43)
[2020-09-10] MEDS: DOCUSATE SODIUM 100MG CAPSULE PO SCH ×2 (08:43→20:29)
[2020-09-10] MEDS: EZETIMIBE 10 MG TAB (ZETIA) PO SCH (08:43)
[2020-09-10] MEDS: COSOPT OCUMETER PLUS 10ML (DORZOLAMIDE/TIMOLOL) OU SCH ×2 (08:43→20:25)
[2020-09-10] MEDS: aMILoride 5 MG TAB PO SCH ×2 (08:43→20:29)
[2020-09-10] MEDS: CLOPIDOGREL 75 MG TAB PO SCH (08:43)
[2020-09-10] MEDS: LOSARTAN 50MG TABLET PO SCH (08:45)
[2020-09-10] MEDS: OCUVITE 1 TAB PO SCH (08:48)
[2020-09-10] MEDS: OYSTER SHELL CALCIUM 500 MG TAB PO SCH (08:48)
[2020-09-10] MEDS: METOPROLOL TART 25 MG TABLET PO SCH ×2 (08:49→20:30)
[2020-09-10 10:37] LABS: HEMOGLOBIN A1c 5.7 %
[2020-09-10 11:22] LABS: HEMATOCRIT 33.6 % (36.0-47.0); HEMOGLOBIN 11.1 g/dl (12.0-15.5)
--- NOTE | 2020-09-10 12:05 | IPNPDOC ---
Subjective Date Seen The patient was seen on 09/10/20. Subjective Chief Complaint/HPI Ms. Watson feels well this morning. She has not vomited or seen any blood in her stools. She has no abdominal pain. She completed her transfusion last night and her hemoglobin after the transfusion was 12.0. This morning is down a little bit to 11.1. I am not sure if this is a physiologic redistribution or if this is related to ongoing occult bleeding. General: Reports: Normal Appetite Constitutional: Reports: Weakness Pulmonary: Denies: Dyspnea, Cough Cardiovascular: Denies: Chest Pain, Palpitations Gastrointestinal: Denies: Nausea, Vomiting, Abdominal Pain, Melena, Hematochezia Genitourinary: Denies: Dysuria, Hematuria Psych: Reports: Mood Normal Objective Physical Examination General Exam: Positive: Alert, Cooperative (Resting in her hospital bed when I entered the room), No Acute Distress Eye Exam: Positive: PERRLA, Conjunctiva & lids normal; Negative: Sclera icteric ENT Exam: Positive: Atraumatic, Mucous membr. moist/pink, Pharynx Normal, Tongue Midline Neck Exam: Positive: Supple; Negative: JVD, Lymphadenopathy Chest Exam: Positive: Clear to auscultation, Normal air movement Heart Exam: Positive: Rate Normal, Regular Rhythm, Normal S1, Normal S2, Murmurs (There is a 23/6 systolic ejection murmur noted at the right upper sternal border) Telemetry: Positive: No significant arrhythmia Abdomen Exam: Positive: Normal bowel sounds, Soft; Negative: Tenderness, Hepatospenomegaly Extremity Exam: Negative: Cyanosis, Edema Skin Exam: Positive: Nl turgor and temperature Neuro Exam: Positive: Normal Speech, Normal Tone Psych Exam: Positive: Mental status NL, Mood NL, Memory Intact Assessment /Plan Problems (1) Anemia due to gastrointestinal blood loss Status: Acute Problem Specific Plan: Repeat Labs Problem Text: She has received her blood now. Her hemoglobin is currently about 0.9 g/dL below her transfusion level. This could be physiologic redistrib ution or this could be signs of ongoing occult bleeding. I have ordered a repeat H/H in a few hours to get a better sense of the trend. Regardless, as she remains on Plavix and there is concern for ongoing gastrointestinal bleeding, I will consult gastroenterology and request they do further evaluation including endoscopy if appropriate. (2) CAD S/P percutaneous coronary angioplasty Status: Chronic Problem Text: She has a known history of coronary artery disease and has had coronary angioplasty and stenting as recently as 5 months ago. Both the patient and her daughter report that they were strictly told by the supervisor intelligence analyst they may not come off Plavix until March 2021. Based on this I will continue her Plavix even in the setting of a GI bleed. She has no symptoms of angina. Cardiology has been consulted to monitor for potential repeat tachyarrhythmia that happened in the emergency department. Appreciate their assistance. Continue current regimen, monitor. (3) Diabetes mellitus Status: Chronic Problem Text: Her hemoglobin A1c shows that she is well controlled with diet alone. We will continue consistent carbohydrate diet and no other interventions at this time. (4) Hypertension Status: Chronic Problem Specific Plan: Monitor Clinically Problem Text: Her blood pressure seems reasonably controlled under the circumstances. Continue current regimen, monitor. (5) Hyperlipidemia Status: Chronic Problem Text: Continue current regimen, monitor. (6) Glaucoma Status: Chronic Problem Text: The hospital does not stock her particular eyedrop but I did give orders that she may use hers from home if it is brought in. Continue current regimen, monitor (7) Trigeminal neuralgia Status: Chronic Problem Text: Continue current regimen, monitor. Plan/VTE VTE Prophylaxis Ordered?: Yes (Mechanical) VTE Exclusion Mechanical Proph: N/A:VTE Prophy Ordered VTE Exclusion Pharmacological: Bleeding Risk Plan Diagnostics: Check Labs, Repeat Labs in AM VS, I&O, 24H, Fishbone Vital Signs/I&O Vital Signs Date Time Temp Pulse Resp B/P (MAP) Pulse Ox O2 Delivery O2 Flow Rate FiO2 09/10/20 08:49 59 129/65 09/10/20 08:00 98.2 18 99 09/10/20 04:00 Room Air I&O- Last 24 Hours up to 6 AM 09/10/20 06:00 Intake Total 900 ml Output Total 350 ml Balance 550 ml Laboratory Data 24H LABS Laboratory Tests 2 09/09/20 12:46: Immature Granulocyte % (Auto) 0.5, Neutrophils (%) (Auto) 72.2H, Lymphocytes (%) (Auto) 17.5L, Monocytes (%) (Auto) 6.8, Eosinophils (%) (Auto) 2.6, Basophils (%) (Auto) 0.4, Neutrophils # (Auto) 5.3, Lymphocytes # (Auto) 1.3L, Monocytes # (Auto) 0.5, Eosinophils # (Auto) 0.2, Basophils # (Auto) 0.0, Nucleated Red Blood Cells % (auto) 0.0, Urine Color STRAW, Urine Appearance CLEAR, Urine pH 5.0, Urine Specific [place] 1.009, Urine Protein NEGATIVE, Urine Glucose (UA) NEGATIVE, Urine Ketones TRACEH, Urine Blood NEGATIVE, Urine Nitrite NEGATIVE, Urine Bilirubin NEGATIVE, Urine Urobilinogen 0.2, Urine Leukocyte Esterase NEGATIVE, Urine WBC (Auto) 4H, Urine RBC (Auto) 0, Urine Hyaline Casts (Auto) 0, Urine Bacteria (Auto) NEGATIVE, Urine Squamous Epithelial Cells 0, Urine Sperm (Auto) , Anion Gap 7L, Glomerular Filtration Rate > 60.0, Calcium Level 8.2L, Magnesium Level 2.6H, Iron Level 36L, Total Iron Binding Capacity 301, Transfe rrin % Saturation 12.0L, Total Bilirubin 0.1L, Aspartate Amino Transf (AST/SGOT) 22, Alanine Aminotransferase (ALT/SGPT) 28, Alkaline Phosphatase 87, Total Creatine Kinase 155, Creatine Kinase MB < 1.0, Creatine Kinase MB Relative Index 0.65, Troponin I 0.13H, EV-Zdg-C-Type Natriuretic Peptide 227, Total Protein 6.1L, Albumin 3.3, Albumin/Globulin Ratio 1.2, Vitamin B12 Level 1070H, Folate > 24.0, Thyroid Stimulating Hormone (TSH) 1.710 09/09/20 15:19: Total Creatine Kinase 163, Creatine Kinase MB < 1.0, Creatine Kinase MB Relative Index 0.61, Troponin I 0.12H 09/09/20 19:22: Coronavirus (COVID-19)(PCR) NEGATIVE, Influenza Type A (RT-PCR) NEGATIVE, I nfluenza Type B (RT-PCR) NEGATIVE, Respiratory Syncytial Virus (PCR) NEGATIVE 09/09/20 21:46: Prothrombin Time 13.6, Prothromb Time International Ratio 1.02, Activated Partial Thromboplast Time 30.3 09/10/20 01:38: Nucleated Red Blood Cells % (auto) 0.0 09/10/20 04:28: Nucleated Red Blood Cells % (auto) 0.0, Anion Gap 6L, Glomerular Filtration Rate > 60.0, Calcium Level 8.3L, Total Bilirubin 0.3#, Aspartate Amino Transf (AST/SGOT) 18, Alanine Aminotransferase (ALT/SGPT) 25, Alkaline Phosphatase 81, Total Protein 5.5L, Albumin 3.0L, Albumin/Globulin Ratio 1.2 09/10/20 08:46: Estimated Mean Plasma Glucose 117H, Hemoglobin A1c 5.7 CBC/BMP Laboratory Tests 09/09/20 12:46 09/10/20 01:38 09/10/20 04:28 09/10/20 10:55 Jair Perez MD Sep 10, 2020 12:05
[2020-09-10] MEDS: SUCRALFATE 1 GM TAB PO SCH ×3 (12:22→20:29)
[2020-09-10 17:10] LABS: HEMATOCRIT 35.5 % (36.0-47.0); HEMOGLOBIN 11.6 g/dl (12.0-15.5); MEAN CORPUSCULAR HEMOGLOBIN 29.3 pg (27.0-33.0); MEAN CORPUSCULAR HGB CONC 32.7 g/dl (32.0-36.5); MEAN CORPUSCULAR VOLUME 89.6 fl (80.0-96.0); PLATELET COUNT, AUTOMATED 243 10^3/uL (150-450); RED BLOOD COUNT 3.96 10^6/uL (4.00-5.40); WHITE BLOOD COUNT 8.2 10^3/uL (4.0-10.0)
[2020-09-10] MEDS: LATANOPROST 0.005% OPHTH SOLN 2.5 ML OU SCH (20:24)
[2020-09-10] MEDS: carBAMazepine 100MG *1/2* TABLET PO SCH (20:26)
[2020-09-10] MEDS: ROSUVASTATIN 10 MG TAB (CRESTOR) PO SCH (20:26)
[2020-09-11] VITALS (7 sets, daily range): BP systolic 126–188; BP diastolic 60–70
[2020-09-11 05:08] LABS: HEMATOCRIT 33.9 % (36.0-47.0); HEMOGLOBIN 10.9 g/dl (12.0-15.5); MEAN CORPUSCULAR HGB CONC 32.2 g/dl (32.0-36.5); MEAN CORPUSCULAR VOLUME 90.2 fl (80.0-96.0); PLATELET COUNT, AUTOMATED 211 10^3/uL (150-450); RED BLOOD COUNT 3.76 10^6/uL (4.00-5.40); WHITE BLOOD COUNT 8.7 10^3/uL (4.0-10.0)
[2020-09-11 05:32] LABS: ALBUMIN 2.8 GM/DL (3.2-5.2); CREATININE FOR GFR 1.2 MG/DL (0.55-1.30); GLOMERULAR FILTRATION RATE 45.2 (>32); PHOSPHORUS LEVEL 3.7 MG/DL (2.5-4.9); POTASSIUM SERUM 4.3 MEQ/L (3.5-5.1)
[2020-09-11] MEDS ORDERED: propofoL 200 MG/20 ML VIAL As Ordered ONE ×2 (07:05→14:20)
[2020-09-11] MEDS ORDERED: LIDOCAINE 2% 100MG/5ML SDV (FOR ANES.) As Ordered ONE ×2 (07:05→14:20)
[2020-09-11] MEDS: aMILoride 5 MG TAB PO SCH ×2 (08:38→20:23)
[2020-09-11] MEDS: DOCUSATE SODIUM 100MG CAPSULE PO SCH ×2 (08:38→20:22)
[2020-09-11] MEDS: OCUVITE 1 TAB PO SCH (08:38)
[2020-09-11] MEDS: SUCRALFATE 1 GM TAB PO SCH ×4 (08:38→20:22)
[2020-09-11] MEDS: VITAMIN D 1,000 INTERNATIONAL UNITS TABLET PO SCH (08:38)
[2020-09-11] MEDS: OYSTER SHELL CALCIUM 500 MG TAB PO SCH (08:38)
[2020-09-11] MEDS: PANTOPRAZOLE 40MG VIAL (C9113 PER 1) IV SCH ×2 (08:39→20:21)
[2020-09-11] MEDS: EZETIMIBE 10 MG TAB (ZETIA) PO SCH (08:39)
[2020-09-11] MEDS: LOSARTAN 50MG TABLET PO SCH (08:39)
[2020-09-11] MEDS: COSOPT OCUMETER PLUS 10ML (DORZOLAMIDE/TIMOLOL) OU SCH ×2 (08:40→20:21)
[2020-09-11] MEDS: METOPROLOL TART 25 MG TABLET PO SCH (08:40)
[2020-09-11] MEDS: CLOPIDOGREL 75 MG TAB PO SCH (08:41)
--- NOTE | 2020-09-11 12:59 | IPN ---
PROGRESS NOTE DATE: 09/11/2020 Mrs. Rica Vergaar was initially seen about 2 days ago as a cardiology consult because while in the emergency room (ER), she was found to have runs of ventricular tachycardia. She was started on the current dose of a beta maria fernanda and received one dose of intravenous (IV) amiodarone 150 mg. Since then, she has been stable but rare isolated premature ventricular contractions (PVCs). She initially came to the hospital after one episode of hematemesis and was found to be markedly anemic. The immediate plan is to proceed with esophagogastroduodenoscopy (EGD) later today. She denies any chest pain, shortness of breath, palpitations, and there is no orthopnea or paroxysmal nocturnal dyspnea (PND). There is no pedal edema. There is no focal manifestation. She denies any dizziness or lightheadedness. According to her , she has been doing well except mildly bradycardic. Her blood pressure has improved. PHYSICAL EXAMINATION: Patient is alert and oriented in no acute distress at rest. Her most recent vital signs earlier today revealed a blood pressure of 143/65 with a pulse of 65, respirations 18, and her maximum temperature was 97.1 degrees Fahrenheit with an oxygen saturation of 97% on room air. Examination of the head: Atraumatic. Neck is supple and no jugular venous distention (JVD) appreciated. The lungs were clear bilaterally on auscultation without any wheezing or crackles. The heart examination revealed normal S1 and S2 without gallops. The point of maximal impulse (PMI) is not displaced. There is no rub. I could not appreciate any murmurs. Abdomen is unremarkable. Extremities reveal no pedal edema. Neurologic examination is negative for focal deficit. LABORATORY DATA: CBC on 09/11/2020 revealed a WBC of 8.7, hemoglobin 10.9, hematocrit 33.9, and platelets 411,000. BMP revealed a sodium of 143, potassium 4.3, chloride 112, CO2 of 25, BUN 19, creatinine 1.2, GFR 45.2, and fasting glucose 84 with a calcium of 8.0. Mrs. Rica Vergara seems to be stable from a cardiac point of view, and she may proceed as scheduled with her gastroscopy. She will continue current cardiac medications, but I have decreased the metoprolol tartrate to 12.5 mg by mouth twice a day and increased the amlodipine up to 5 mg by mouth daily. I will continue to monitor her along with you as needed while in the hospital. If gastroscopy is negative, the plan is to perform a colonoscopy as outpatient. Case was discussed with Dr. Perez.
[2020-09-11] MEDS ORDERED: LR 1,000 ML IV SCH (18:35)
--- NOTE | 2020-09-11 18:37 | ROOR ---
Patient Name: Rica Vergara Procedure Date: 09/11/2020 6:04 PM Date of : 1935 Age: 85 Room: Main OR Gender: Female Note Status: Finalized Procedure: Upper GI endoscopy Indications: Acute post hemorrhagic anemia, Iron deficiency anemia secondary to chronic blood loss Providers: Rohan Landa MD Referring MD: 2. Inpatient 2. Inpatient Requesting Provider: KINZA CASEY MD Medicines: Monitored Anesthesia Care Complications: No immediate complications. Procedure: Pre-Anesthesia Assessment: - The heart rate, respiratory rate, oxygen saturations, blood pressure, adequacy of pulmonary ventilation, and response to care were monitored throughout the procedure. The Endoscope was introduced through the mouth, and advanced to the second part of duodenum. The upper GI endoscopy was accomplished without difficulty. The patient tolerated the procedure well. 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 One non-bleeding superficial gastric ulcer with no stigmata of bleeding was found in the gastric antrum. The lesion was 6 mm in largest dimension. Biopsies were taken with a cold forceps for histology. Scattered mild inflammation characterized by erosions and erythema was found in the gastric antrum. The exam was otherwise without abnormality. Impression: - A small shallow Non-bleeding gastric ulcer with no stigmata of bleeding. Biopsied. - Mild scattered gastritis. 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 - The examination was otherwise normal. Recommendation: - Use a proton pump inhibitor PO daily indefinitely. - Consider: Perform a colonoscopy at appointment to be scheduled. (outpatient). Procedure Code(s): --- Professional --- 98223, Esophagogastroduodenoscopy, flexible, transoral; with biopsy, single or multiple Diagnosis Code(s): --- Professional --- K22.5, Diverticulum of esophagus, acquired K25.9, Gastric ulcer, unspecified as acute or chronic, without hemorrhage or perforation K29.70, Gastritis, unspecified, without bleeding D62, Acute posthemorrhagic anemia D50.0, Iron deficiency anemia secondary to blood loss (chronic) CPT copyright 2019 [employer]. All rights reserved. The codes documented in this report are preliminary and upon quality control coordinator review may be revised to meet current compliance requirements. Rohan Landa MD Rohan Landa MD 09/11/2020 6:36:38 PM Electronically signed by Rohan Landa MD Number of Addenda: 0 Note Initiated On: 09/11/2020 6:04 PM Estimated Blood Loss: Estimated blood loss: none.
[2020-09-11] MEDS: LATANOPROST 0.005% OPHTH SOLN 2.5 ML OU SCH (20:21)
[2020-09-11] MEDS: ROSUVASTATIN 10 MG TAB (CRESTOR) PO SCH (20:22)
[2020-09-11] MEDS: carBAMazepine 100MG *1/2* TABLET PO SCH (20:22)
[2020-09-11] MEDS: METOPROLOL TART 12.5 MG PER 1/2 TAB PO SCH (20:23)
--- NOTE | 2020-09-11 23:46 | IPNPDOC ---
Subjective Date Seen The patient was seen on 09/11/20. Subjective Chief Complaint/HPI I saw Ms. Watson briefly today in the PACU after her EGD. I spoke with Dr. Landa at that time too. She reports that she is feeling well, though maybe a little groggy after the anesthesia. Dr. Landa said that he found a shallow ulcer that was in the early stages of healing, he estimated about 2 days. While this isn't a "smoking gun" it certainly may be the answer to why she lost blood. He took bx for H. pylori, but those will take a few days to come back. He thinks she would benefit from a colonoscopy to verify that there isn't anything else going on that could cause her blood loss, but he feels it is fine to do that in the outpatient setting after she is discharged. Constitutional: Denies: Chills, Fever Pulmonary: Denies: Dyspnea, Cough Cardiovascular: Denies: Chest Pain, Palpitations Gastrointestinal: Denies: Nausea, Vomiting, Abdominal Pain, Melena, Hematochezia Genitourinary: Denies: Dysuria, Hematuria Psych: Reports: Mood Normal Objective Physical Examination General Exam: Positive: Alert, Cooperative (Laying on a stretcher in the PACU talking the staff), No Acute Distress Eye Exam: Positive: PERRLA, Conjunctiva & lids normal; Negative: Sclera icteric ENT Exam: Positive: Atraumatic, Mucous membr. moist/pink Neck Exam: Positive: Supple; Negative: JVD Telemetry: Positive: No significant arrhythmia Neuro Exam: Positive: Normal Speech Psych Exam: Positive: Mental status NL, Mood NL, Memory Intact Assessment /Plan Problems (1) Anemia due to gastrointestinal blood loss Status: Acute Problem Specific Plan: Repeat Labs Problem Text: Her hemoglobin has remained relatively stable over the last day. Dr. Holm was able to find an ulcer in her stomach in an early stage of healing. He is taken biopsies for H. pylori, but there was no active bleeding at the time of the EGD. If her hemoglobin remained stable overnight I anticipate discharging her tomorrow. (2) CAD S/P percutaneous coronary angioplasty Status: Chronic Problem Text: She has a known history of coronary artery disease and has had coronary angioplasty and stenting as recently as 5 months ago. Both the patient and her daughter report that they were strictly told by the assembler final they may not come off Plavix until March 2021. Based on this I will continue her Plavix even in the setting of a GI bleed. She has no symptoms of angina even in the periprocedural period. (3) Diabetes mellitus Status: Chronic Problem Text: Her hemoglobin A1c shows that she is well controlled with diet alone. We will continue consistent carbohydrate diet and no other interventions at this time. (4) Hypertension Status: Chronic Problem Specific Plan: Monitor Clinically Problem Text: Her blood pressure seems reasonably controlled under the circumstances. Continue current regimen, monitor. (5) Hyperlipidemia Status: Chronic Problem Text: Continue current regimen, monitor. (6) Glaucoma Status: Chronic Problem Text: The hospital does not stock her particular eyedrop but I did change to one similar that we do stock. She should continue her home regimen on discharge. (7) Trigeminal neuralgia Status: Chronic Problem Text: Continue current regimen, monitor. Plan/VTE VTE Prophylaxis Ordered?: Yes (Mechanical) VTE Exclusion Mechanical Proph: N/A:VTE Prophy Ordered VTE Exclusion Pharmacological: Bleeding Risk Plan Diagnostics: Repeat Labs in AM Anticipated Discharge: Home (In the morning if her hemoglobin is stable) VS, I&O, 24H, [facility] Vital Signs/I&O Vital Signs Date Time Temp Pulse Resp B/P (MAP) Pulse Ox O2 Delivery O2 Flow Rate FiO2 09/11/20 20:23 68 162/70 09/11/20 20:00 97.6 16 97 Room Air I&O- Last 24 Hours up to 6 AM 09/11/20 06:00 Intake Total 960 ml Output Total 400 ml Balance 560 ml Laboratory Data 24H LABS Laboratory Tests 2 09/11/20 04:54: Nucleated Red Blood Cells % (auto) 0.0, Anion Gap 6L, Glomerular Filtration Rate 45.2, Calcium Level 8.0L, Phosphorus Level 3.7, Albumin 2.8L CBC/BMP Laboratory Tests 09/11/20 04:54 Jair Perez MD Sep 11, 2020 23:46
[2020-09-12] VITALS: BP 118/56
[2020-09-12 04:00] VITALS: BP 176/72
[2020-09-12 05:58] LABS: HEMATOCRIT 34.8 % (36.0-47.0); HEMOGLOBIN 11.3 g/dl (12.0-15.5); MEAN CORPUSCULAR HEMOGLOBIN 29.2 pg (27.0-33.0); MEAN CORPUSCULAR HGB CONC 32.5 g/dl (32.0-36.5); MEAN CORPUSCULAR VOLUME 89.9 fl (80.0-96.0); PLATELET COUNT, AUTOMATED 217 10^3/uL (150-450); RED BLOOD COUNT 3.87 10^6/uL (4.00-5.40); WHITE BLOOD COUNT 9.6 10^3/uL (4.0-10.0)
[2020-09-12 06:25] LABS: ALBUMIN 2.7 GM/DL (3.2-5.2); BLOOD UREA NITROGEN 15 MG/DL (7-18); CALCIUM LEVEL 8.2 MG/DL (8.8-10.2); CARBON DIOXIDE LEVEL 25 MEQ/L (21-32); CHLORIDE LEVEL 112 MEQ/L (98-107); CREATININE FOR GFR 0.84 MG/DL (0.55-1.30); GLOMERULAR FILTRATION RATE > 60.0 (>32); GLUCOSE, FASTING 94 MG/DL (70-100); PHOSPHORUS LEVEL 3.7 MG/DL (2.5-4.9); POTASSIUM SERUM 3.9 MEQ/L (3.5-5.1); SODIUM LEVEL 142 MEQ/L (136-145)
[2020-09-12 08:00] VITALS: BP 125/60
[2020-09-12] MEDS: EZETIMIBE 10 MG TAB (ZETIA) PO SCH (08:28)
[2020-09-12] MEDS: LOSARTAN 50MG TABLET PO SCH (08:28)
[2020-09-12] MEDS: VITAMIN D 1,000 INTERNATIONAL UNITS TABLET PO SCH (08:28)
[2020-09-12 08:29] VITALS: BP 125/60
[2020-09-12] MEDS: DOCUSATE SODIUM 100MG CAPSULE PO SCH (08:29)
[2020-09-12] MEDS: OYSTER SHELL CALCIUM 500 MG TAB PO SCH (08:29)
[2020-09-12] MEDS: SUCRALFATE 1 GM TAB PO SCH ×2 (08:29→11:57)
[2020-09-12] MEDS: METOPROLOL TART 12.5 MG PER 1/2 TAB PO SCH (08:29)
[2020-09-12] MEDS: aMILoride 5 MG TAB PO SCH (08:29)
[2020-09-12] MEDS: CLOPIDOGREL 75 MG TAB PO SCH (08:29)
[2020-09-12] MEDS: OCUVITE 1 TAB PO SCH (08:29)
[2020-09-12] MEDS: PANTOPRAZOLE 40MG VIAL (C9113 PER 1) IV SCH (08:30)
[2020-09-12] MEDS: COSOPT OCUMETER PLUS 10ML (DORZOLAMIDE/TIMOLOL) OU SCH (08:30)
[2020-09-12] MEDS ORDERED: amLODIPine 5 MG TAB PO SCH (09:00)
[2020-09-12] MEDS ORDERED: PANT40TA29 PO (10:31)
[2020-09-12] MEDS ORDERED: AMLO1TAB24 PO (10:31)
[2020-09-12] MEDS ORDERED: SUCR1TA PO (10:31)
[2020-09-12] MEDS ORDERED: METO1TAB87 PO (11:16)
--- NOTE | 2020-09-12 11:31 | DS.PDOC ---
Discharge Summary General Date of Admission Sep 09, 2020 at 17:02 Date of Discharge 09/12/20 Primary Care Physician: SOILA STEELE DO Attending Physician: Jair Perez MD Specialist/Consultants Involve: NATANAEL LANDA MD Discharge Summary ADMITTING DIAGNOSES: 1. Anemia secondary to gastrointestinal blood loss. 2. Coronary artery disease, status post percutaneous coronary angioplasty. 3. Diabetes mellitus, diet controlled. 4. Hypertension. 5. Hyperlipidemia. 6. Glaucoma. 7. Trigeminal neuralgia. DISCHARGE DIAGNOSES: 1. Peptic ulcer, in early stages of healing. 2. GI blood loss anemia, stable. 3. Several runs of ventricular tachycardia while in the emergency department. 4. Coronary artery disease. 5. Hypertension. 6. Diabetes mellitus, diet controlled. 7. Hyperlipidemia. 8. Glaucoma. 9. Trigeminal neuralgia. PROCEDURES PERFORMED DURING STAY: Esophagogastroduodenoscopy. ADMISSION HISTORY: Ms. Vergara was feeling well until about 5 days before admission she got a "stomach bug" with probable hematemesis. Please see the admission history and physical for the remaining details. HOSPITAL COURSE: Ms. Vergara was admitted for clinically significant anemia probably with a GI blood loss source. She received blood transfusion of 2 units of packed cells. This took her hemoglobin from 8.3 up to 12.0. After that it drifted down a little but has maintained right around 11. A complication is the fact that she must remain on Plavix secondary to recent coronary revascularization after occlusion of a coronary stent because the Plavix was held briefly. Her aspirin was held on admission but the Plavix was continued. Because of this, and the fact that there was the possibility of continued occult bleeding, GI was consulted and an EGD was done. I spoke directly to Dr. Landa after the procedure and he showed me pictures of a single shallow ulcer in the stomach with an early coagulum covering it. He suspected it was about 2 days into healing. He took biopsies for H. pylori. He cannot be certain that this was the source of the bleeding, although it seems likely. He is recommending that she get a colonoscopy done in the outpatient setting just to confirm there is nothing else that might be the source of her blood loss. While in the emergency department the patient did have several runs of what appeared to be ventricular tachycardia. This was while she was significantly anemic. She was started on metoprolol 25 mg p.o. twice daily and given 1 dose of 150 mg of IV amiodarone. While here in the hospital she has been monitored and there have been no further evidence of sustained arrhythmia. The metoprolol was changed down to 12.5 mg twice daily and her amlodipine was increased to 5 mg daily. I spoke with Dr. Rockwell prior to discharge and she will be sent home on this modified regimen. Cardiology would like to see her in follow-up in two weeks. DISCHARGE CONDITION: Stable. FOLLOW-UP: I requested she have an appointment with Dr. Steele, her primary care provider for hospital follow-up in 10 to 14 days. She should see Dr. Landa in the outpatient setting to schedule a colonoscopy per his office instructions. Cardiology said they will reach out to schedule her for hospital follow-up within about 2 weeks. ACTIVITY: As tolerated. DIET: 2 g sodium as tolerated. DISCHARGE MEDICATIONS: Please see below. ALLERGIES: Please see below. LABORATORY DATA: Please see below. IMAGING: Chest x-ray DISCHARGE INSTRUCTIONS: 1. Follow-up with Dr. Steele within 10 to 14 days. 2. Follow-up with Dr. Schwarz per his office. 3. Follow-up with Dr. Rockwell per his office. ITEMS TO FOLLOWUP ON ON OUTPATIENT: 1. She had H. pylori biopsies taken but the results were not available by the time of discharge. 2. GI has recommended a colonoscopy to be done on an outpatient basis. 3. Her Plavix has been continued per cardiology's instructions, but her aspirin has been held. At some point it may be safe to resume her aspirin as well. 4. She was discharged home on Protonix twice daily. This should be reassessed after the period of time when her peptic ulcer would be expected to heal. 5. Her amlodipine was increased from 2.5 mg to 5 mg daily. Additionally me toprolol 12.5 mg twice daily was added to her regimen because of runs of V. tach while in the emergency department. This was managed by her plastic dolls mold filler, Dr. Rockwell, who is aware. TIME SPENT ON DISCHARGE: Greater than 35 minutes. Vital Signs/I&Os Vital Signs Date Time Temp Pulse Resp B/P (MAP) Pulse Ox O2 Delivery O2 Flow Rate FiO2 09/12/20 08:29 66 125/60 09/12/20 08:00 98.5 18 97 Room Air I&O- Last 24 Hours up to 6 AM 09/12/20 06:00 Intake Total 980 ml Output Total 125 ml Balance 855 ml Laboratory Data Labs 24H Laboratory Tests 2 09/12/20 05:29: Nucleated Red Blood Cells % (auto) 0.0, Anion Gap 5L, Glomerular Filtration Rate > 60.0, Calcium Level 8.2L, Phosphorus Level 3.7, Albumin 2.7L CBC/BMP Laboratory Tests 09/12/20 05:29 Discharge Medications Scheduled Amiloride HCl (Amiloride HCl) 5 Mg Tablet, 5 MG PO BID, (Reported) Amlodipine Besylate (Amlodipine Besylate) 5 Mg Tablet, 5 MG PO DAILY Bimatoprost (Lumigan) 0.01% 2.5ML Drops, 1 DROP OU QHS, (Reported) Calcium Carbonate (Calcium) 500 Mg Tablet, 500 MG PO DAILY, (Reported) Carbamazepine (Carbamazepine) 100 Mg Tab.chew, 100 MG PO QHS, (Reported) Cholecalciferol (Vitamin D3) (Vitamin D3) 1,000 Unit Tablet, 1,000 UNITS PO DAILY, (Reported) Clopidogrel Bisulfate (Clopidogrel) 75 Mg Tablet, 75 MG PO DAILY, (Reported) Dorzolamide HCl/Timolol Maleat (Cosopt Eye Drops) 10 Ml Drops, 1 DROP OU BID, (Reported) Ezetimibe (Ezetimibe) 10 Mg Tablet, 10 MG PO DAILY, (Reported) Losartan Potassium (Losartan Potassium) 100 Mg Tablet, 100 MG PO DAILY, (Reported) Multivitamins (Thera M Plus Tablet) 1 Each Tablet, 1 TAB PO DAILY, (Reported) Pantoprazole Sodium (Pantoprazole Sodium) 40 Mg Tablet.dr, 40 MG PO BID Rosuvastatin Calcium (Rosuvastatin Calcium) 20 Mg Tablet, 20 MG PO QHS, (Reported) Sucralfate (Sucralfate) 1 Gm Tablet, 1 GM PO ACHS Vit A/Vit C/Vit E/Zinc/Copper (Preservision Areds Tablet) 1 Each Tablet, 1 TAB PO DAILY, (Reported) Zinc (Zinc) 50 Mg Tablet, 50 MG PO DAILY, (Reported) Scheduled PRN Docusate Sodium (Colace) 100 Mg Capsule, 100 MG PO DAILY PRN for CONSTIPATION, (Reported) Furosemide (Furosemide) 40 Mg Tablet, 40 MG PO DAILY PRN for EDEMA, (Reported) Nitroglycerin (Nitroglycerin) 0.4 Mg Tab.subl, 0.4 MG SL NITRO PRN for CHEST PAIN, (Reported) Allergies Coded Allergies: Cephalosporins (Verified Allergy, Unknown, 07/11/19) Penicillins (Verified Allergy, Unknown, 07/11/19) hydrochlorothiazide (Verified Allergy, Unknown, 07/11/19) niacin (Verified Allergy, Unknown, 07/11/19) cyclopentolate (Verified Adverse Reaction, Unknown, unknown, 07/20/19) Jair Perez MD Sep 12, 2020 10:34
== END 2020-09-12 12:34 | disposition home or self-care (01) | DRG 384 ==
LOC: M ED 10:35 → M ED INP 17:02 → M PCU 22:36
PROVIDERS: ADMIT Family Medicine; ATTEND Family Medicine
PROC: 30233N1 Transfusion of Nonautologous Red Blood Cells into Peripheral Vein, Percutaneous Approach (ICD-10-PCS; 2020-09-10)
PROC: 0DB78ZX Excision of Stomach, Pylorus, Via Natural or Artificial Opening Endoscopic, Diagnostic (ICD-10-PCS; principal; 2020-09-11 15:00)
DX: K27.9 Peptic ulcer, site unspecified, unspecified as acute or chronic, without hemorrhage or perforation (principal); D62 Acute posthemorrhagic anemia; I47.2 Ventricular tachycardia; K92.2 Gastrointestinal hemorrhage, unspecified; Z95.5 Presence of coronary angioplasty implant and graft; Z79.82 Long term (current) use of aspirin; Z79.899 Other long term (current) drug therapy; Z88.3 Allergy status to other anti-infective agents; Z88.0 Allergy status to penicillin; Z88.8 Allergy status to other drugs, medicaments and biological substances; I48.91 Unspecified atrial fibrillation; I10 Essential (primary) hypertension; E11.9 Type 2 diabetes mellitus without complications; E78.5 Hyperlipidemia, unspecified; H40.9 Unspecified glaucoma; G50.0 Trigeminal neuralgia; G47.00 Insomnia, unspecified; Z85.3 Personal history of malignant neoplasm of breast; Z98.41 Cataract extraction status, right eye; Z98.42 Cataract extraction status, left eye; Z79.01 Long term (current) use of anticoagulants; K29.70 Gastritis, unspecified, without bleeding

== ENCOUNTER → 2020-09-15 | Outpatient (CLI) | payer MEDICARE ==
[~2020-09-15] MED LIST changes: +AMLO1TAB24 PO; +AMLO2.5T3 PO; +ASPI-161 PO; +CLOP75TA2 PO; +COLA100C5 PO; +D31000TA2 PO; +EZET10TA21 PO; +LOSA100T50 PO; +METO1TAB87 PO; +NITR0.4S14 SL; +OCUVTAB4 PO; +OYST1TAB PO; +PANT40TA29 PO; +ROSU20TA5 PO; +SUCR1TA PO; +VITMTA PO; +ZINC1TAB2 PO
--- NOTE | 2020-09-15 12:19 | REP ---
INDICATION: PELVIC AND PERINEAL PAIN. COMPARISON: None. TECHNIQUE: AP pelvis FINDINGS: There is mild symmetric appearing bilateral hip joint space narrowing without prominent marginal osteophytosis or significant buttressing. There is no acute fracture, dislocation, or subluxation. Chronic changes are seen involving the sacroiliac joints and imaged portion of the spine. IMPRESSION: Chronic changes as described above <Electronically signed by Erick Ma > 09/15/20 [id number]
--- NOTE | 2020-09-15 12:32 | REP ---
INDICATION: PELVIC AND PERINEAL PAIN. COMPARISON: None TECHNIQUE: AP and frog-lateral views FINDINGS: There is mild rather symmetric appearing hip joint space narrowing without fracture, dislocation, subluxation, or buttressing. IMPRESSION: Mild chronic changes <Electronically signed by Erick Ma > 09/15/20 [id number]
== END ==
LOC: M PLALAB 11:02 → M PLAIMG 11:02
PROVIDERS: ATTEND Family Medicine
DX: R10.2 Pelvic and perineal pain (principal)

== ENCOUNTER → 2020-11-16 | Outpatient (CLI) | payer MEDICARE ==
--- NOTE | 2020-11-16 10:59 | REPMRS ---
Patient History The patient states she has not had a clinical breast exam in over a year. Family history of colorectal cancer at age 50 or over in maternal grandfather, breast cancer at age 50 or over in maternal aunt. Malignant lumpectomy of the left breast. Radiation therapy of the left breast. Diagnostic Bilateral Mammo: November 16, 2020 - Exam #: [id number] CC with magnification, MLO with magnification, and ML with magnification view(s) were taken of the right breast. Technologist: Cecelia Jarrell, Technologist Prior study comparison: October 07, 2019, diagnostic bilateral mammo performed at [facility]. November 27, 2018, right breast digital mammo diagnostic unilateral, performed at [facility], [place]. April 30, 2018, bilateral digital mammo screening bilat, performed at [facility], [place]. April 26, 2017, bilateral digital mammo screening bilat, performed at [facility], [place]. April 15, 2016, bilateral digital mammo screening bilat, performed at [facility], [place]. FINDINGS: The breast tissue is extremely dense which could obscure a lesion on mammography. The Volpara volumetric breast density category is: D. The previously noted grouping of polymorphic microcalcifications in the inferior medial aspect of the right breast is again seen. When compared with the 2019 prior mammography, today's magnified focal spot images demonstrate that there are 2 or 3 more microcalcifications in this grouping. No soft tissue component has developed. This grouping of microcalcifications remains suspicious. Today's study again demonstrates stable post treatment changes on the left. No other suspicious finding. There is an extremely dense symmetrical pattern of residual fibroglandular tissue. There has been no other change in the appearance of the mammogram from the previous studies. cy. 3-D tomosynthesis shows no additional findings. Assessment: BI-RADS/ACR Category 4 mammogram. Suspicious Abnormality-biopsy should be considered. Recommendation Needle biopsy of the right breast. This mammogram was interpreted with the aid of an FDA-approved computer-aided dectection system. Electronically Signed By: Godwin Wright MD 11/16/20 [id number]
== END ==
LOC: M WHC 09:05
PROVIDERS: ATTEND Physician Assistant
DX: R92.0 Mammographic microcalcification found on diagnostic imaging of breast (principal); Z85.3 Personal history of malignant neoplasm of breast; Z80.0 Family history of malignant neoplasm of digestive organs; Z80.3 Family history of malignant neoplasm of breast
CPT/HCPCS: 77066; G0279

== ENCOUNTER → 2021-12-17 | Outpatient (CLI) | payer MEDICARE ==
[~2021-12-17] MED LIST changes: -D31000TA2 PO; +LOSA100T45 PO; -LOSA100T50 PO; +LOSA25TA13 PO; -LOSA25TA14 PO; +VITA100093 PO
== END ==
LOC: M WHC 11:06
PROVIDERS: ATTEND Surgery
DX: Z12.31 Encounter for screening mammogram for malignant neoplasm of breast (principal); Z85.3 Personal history of malignant neoplasm of breast; R92.1 Mammographic calcification found on diagnostic imaging of breast

== ENCOUNTER → 2022-12-19 | Outpatient (CLI) | payer MEDICARE ==
[~2022-12-19] MED LIST changes: -COSO1SOL3 OU; +DORZ10DR10 OU; -LOSA100T45 PO; +LOSA100T46 PO; -ROSU20TA5 PO; +ROSU20TA61 PO
== END ==
LOC: M WHC 09:53
PROVIDERS: ATTEND Family Medicine
DX: Z12.31 Encounter for screening mammogram for malignant neoplasm of breast (principal); Z85.3 Personal history of malignant neoplasm of breast; R92.333 Mammographic heterogeneous density, bilateral breasts